=== PATIENT | male | born 1960 | race Caucasian/White ===

== ENCOUNTER 2017-05-12 10:44 | Outpatient (CLI) | payer BC ==
--- NOTE | 2017-05-13 10:50 | Diagnostic Imaging Report ---
APPROVED REPORT CPT Code: 70558 Present Symptoms Comments: Right leg Pain and swelling Hx of Varicose veins R/O Venous Insufficiency RIGHT LEG: VENOUS INSUFFICIENCY: Imaging reveals venous insufficiency in the greater saphenous vein at the right proximal, mid-thigh to knee level and also lesser saphenous vein was incompetent along its entire length in the supine position below knee level. Reflux lasted longer than 0.5 seconds, right leg. Varicose veins noted (thigh and ankle area). Right proximal Thigh Diameter 5.8mm Mid thigh Diameter 4.0mm Dist thigh Diameter 3.4mm Knee Diameter 4.6mm Below knee Diameter 1.7 mm LEFT LEG: VENOUS INSUFFICIENCY: Imaging reveals venous insufficiency in the greater saphenous vein at the left proximal thigh level. Reflux lasted longer than 0.5 seconds, left leg. The deep venous system is patent, bilaterally. The femoral, popliteal, and peroneal veins are incompetent in the supine position. Reflux lasted longer than 0.5 seconds, both legs.
--- NOTE | 2017-05-13 10:50 | Diagnostic Imaging Report ---
APPROVED REPORT CPT Code: 81448 Symptoms Comments: Pain BILATERAL: Common femoral artery waveform analysis is within normal limits at rest. Color flow duplex sonography reveals minimal calcification throughout the superficial femoral, and popliteal arteries. There is no evidence of stenosis or occlusion within these segments. The tibioperoneal trunks are patent. The posterior tibial, anterior tibial and dorsalis pedis arteries are also patent. Ankle-brachial indices and, Doppler tibial artery waveform analysis are measured. The tibial artery waveform analysis is triphasic and MARIAELENA 1.1 (right) and 1.1 (left) are within normal limits, at rest.
== END 2017-05-12 12:44 | disposition home or self-care (01) ==
LOC: VAS 10:44
DX: M79.605 Pain in left leg (principal); M79.604 Pain in right leg; I83.91 Asymptomatic varicose veins of right lower extremity
CPT/HCPCS: 93925; 93970